=== PATIENT | male | born 1960 | race African-American/Black ===

== ENCOUNTER 2016-12-30 15:07 | Emergency (ER) | payer OTHER ==
[~2016-12-30] VITALS: Ht 185.4 cm; Wt 83.5 kg
[~2016-12-30 15:07] MED LIST: HYDR-2666 PO; HYDR-2762 PO; LISI40TA PO; LORA0.5T96 PO; MAGN64TA6 PO; MONT10TA6 PO; MULT-245 PO; POTA20TA82 PO; PRED20TA PO
[2016-12-30] MEDS ORDERED: IPRATRPIUM/ALBUTEROL 0.5/2.5MG 3 ML NEBU. ONE (15:26)
--- NOTE | 2016-12-30 15:28 | ED.ADGEN ---
Past History Past Medical History: Alcoholism, Hypertension, Hepatitis, Liver Disease, Other Past Surgical History: Other Alcohol Use: Heavy Drug Use: None Adult General Chief Complaint Chief Complaint abdominal pain HPI HPI Patient is a 56 year old male who presents with abdominal distention and abdominal pain. It's been slowly progressing over the last week. He also reports cough, denies known fevers, denies chest pain. Patient has known history of end-stage liver cirrhosis with abdominal ascites. He's required paracentesis in the past. He's been taking [place] for his chronic pain, no nausea or vomiting. The ascites does make him short of breath and he has orthopnea. He had edema in his lower extremities with states this is since improved. His last paracentesis was in November, PCP is Dr. 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 He does not continue to drink alcohol. Review of Systems Review of Systems Constitutional: Denies fever or chills [] Eyes: Denies change in visual acuity, redness, or eye pain [] HENT: Denies nasal congestion or sore throat [] Respiratory: Reports cough/sob Cardiovascular: denies chest pain GI: per hpi : Denies dysuria or hematuria [] Musculoskeletal: Denies back pain or joint pain [] Integument: Denies rash or skin lesions [] Neurologic: Denies headache, focal weakness or sensory changes [] Current Medications Current Medications Current Medications Medications (Trade) Dose Ordered Sig/[place] Start Time Stop Time Status Last Admin Dose Admin Albuterol/ Ipratropium (Duoneb) 3 ml STK-MED ONCE 12/30/16 15:26 12/30/16 15:27 DC Albuterol/ Ipratropium 3 ml 3 ml 1X ONCE 12/30/16 17:15 12/30/16 17:16 DC Dextrose 12.5 gm 1X ONCE 12/30/16 17:40 12/30/16 17:41 DC 12/30/16 17:31 12.5 GM Fentanyl Citrate (Fentanyl 2ml Vial) 50 mcg 1X ONCE 12/30/16 16:00 12/30/16 16:01 DC 12/30/16 16:00 50 MCG Levofloxacin/ Dextrose 100 ml @ 100 mls/hr 1X ONCE 12/30/16 16:30 12/30/16 17:29 DC 12/30/16 16:33 100 MLS/HR Levofloxacin/ Dextrose 1 each 1 each PRN DAILY PRN 12/30/16 16:00 Magnesium Sulfate (Magnesium Sulfate PREMIX 2GM) 50 ml @ 25 mls/hr 1X ONCE 12/30/16 17:30 12/30/16 19:29 12/30/16 17:25 25 MLS/HR Ondansetron HCl (Zofran) 4 mg 1X ONCE 12/30/16 18:00 12/30/16 18:01 12/30/16 17:40 4 MG Piperacillin Sod/ Tazobactam Sod (Zosyn Per Pharmacy) 1 each PRN DAILY PRN 12/30/16 16:00 Piperacillin Sod/ Tazobactam Sod 3.375 gm 3.375 gm STK-MED ONCE 12/30/16 16:41 12/30/16 16:42 DC Piperacillin Sod/ Tazobactam Sod 3.375 gm/Sodium Chloride 50 ml @ 100 mls/hr 1X ONCE 12/30/16 16:30 12/30/16 17:00 DC 12/30/16 17:08 100 MLS/HR Sodium Chloride (Iv Sodium Chloride 0.9% 1,000ml) 1,000 ml @ 100 mls/hr Q10H 12/30/16 15:30 Sodium Chloride (Iv Sodium Chloride 0.9% 50ml) 50 ml @ As Directed STK-MED ONCE 12/30/16 16:41 12/30/16 16:42 DC Vancomycin HCl (Vanco Per Pharmacy) 1 each PRN DAILY PRN 12/30/16 16:00 Vancomycin HCl 2 gm/Sodium Chloride 500 ml @ 250 mls/hr 1X ONCE 12/30/16 17:00 12/30/16 18:59 Cancel Vancomycin HCl/ Sodium Chloride (Iv Sodium Chloride 0.9% 500ml) 500 ml @ 250 mls/hr 1X ONCE 12/30/16 17:00 12/30/16 18:59 12/30/16 17:08 250 MLS/HR Allergies Allergies Allergies Coded Allergies Type Severity Reaction Last Updated Verified Sulfa (Sulfonamide Antibiotics) Allergy Intermediate 10/13/16 Yes folic acid Allergy Intermediate 10/13/16 Yes I S O L A T I O N *CONTACT* Allergy Unknown 10/15/16 Yes potassium Allergy Unknown 12/05/16 Yes Physical Exam Physical Exam Constitutional: well developed, mild distress, appears uncomfortable, doesn't want to lay back, thin extremities. HENT: Normocephalic, atraumatic, bilateral external ears normal, oropharynx moist, no oral exudates, nose normal. [] Eyes: PERRLA, EOMI, conjunctiva slightly icteric, no discharge. [] Neck: Normal range of motion, no tenderness, supple, no stridor. [] Cardiovascular:Heart rate tachycardia with regular rhythm, no murmur [] Lungs & Thorax: Bilateral breath sounds with moderate air, bibasilar crackles, no wheezing Abdomen: Bowel sounds normal, distended, generalized ttp without peritoneal signs, no guarding,small+ fluid wave Skin: Warm, dry, no erythema, no rash. [] Back: No tenderness, no CVA tenderness. [] Extremities: No tenderness, no cyanosis, no clubbing, ROM intact, trace bilateral lower extremity edema. [] Neurologic: Alert and oriented X 3, normal motor function, normal sensory function, no focal deficits noted. [] Psychologic: Affect normal, judgement normal, mood normal. [] Current Patient Data Vital Signs Vital Signs Date Time Temp Pulse Resp B/P Pulse Ox O2 Delivery O2 Flow Rate FiO2 12/30/16 17:06 95 12/30/16 16:34 138 109/61 Room Air 12/30/16 16:22 20 12/30/16 15:10 97.9 Lab Results Laboratory Tests Test 12/30/16 15:31 12/30/16 16:30 12/30/16 17:21 Lactic Acid Level 16.7mmol/L (0.4-2.0) *H White Blood Count 4.0x10^3/uL (4.0-11.0) Red Blood Count 2.64x10^6/uL (4.30-5.70) L Hemoglobin 8.9g/dL (13.0-17.5) L Hematocrit 27.3% (39.0-53.0) L Mean Corpuscular Volume 103fL (79-100) H Mean Corpuscular Hemoglobin 34pg (25-35) Mean Corpuscular Hemoglobin Concent 33g/dL (31-37) Red Cell Distribution Width 17.5% (11.5-14.5) H Platelet Count 38x10^3/uL (140-400) L Neutrophils (%) (Auto) 80% (31-73) H Lymphocytes (%) (Auto) 15% (24-48) L Monocytes (%) (Auto) 5% (0-9) Eosinophils (%) (Auto) 0% (0-3) Basophils (%) (Auto) 0% (0-3) Neutrophils # (Auto) 3.2x10^3uL (1.8-7.7) Lymphocytes # (Auto) 0.6x10^3/uL (1.0-4.8) L Monocytes # (Auto) 0.2x10^3/uL (0.0-1.1) Eosinophils # (Auto) 0.0x10^3/uL (0.0-0.7) Basophils # (Auto) 0.0x10^3/uL (0.0-0.2) Platelet Estimate Pending Prothrombin Time 28.8SEC (9.4-11.4) H Prothrombin Time INR 2.8 (0.9-1.1) H PTT 57SEC (23-33) H Sodium Level 144mmol/L (136-145) Potassium Level 3.7mmol/L (3.5-5.1) Chloride Level 108mmol/L (98-107) H Carbon Dioxide Level 11mmol/L (21-32) *L Anion Gap 25 (6-14) H Blood Urea Nitrogen 7mg/dL (8-26) L Creatinine 2.0mg/dL (0.7-1.3) H Estimated GFR (Cockcroft-Gault) 41.7 Glucose Level 60mg/dL (70-99) L Calcium Level 6.0mg/dL (8.5-10.1) *L Magnesium Level 0.4mg/dL (1.8-2.4) L Total Bilirubin 1.1mg/dL (0.2-1.0) H Direct Bilirubin 0.8mg/dL (0.0-0.2) H Aspartate Amino Transferase (AST) 109U/L (15-37) H Alanine Aminotransferase (ALT) 22U/L (16-63) Alkaline Phosphatase 151U/L (46-116) H LL-Vjg-U-Type Natriuretic Peptide 939pg/mL (0-124) H Total Protein 5.6g/dL (6.4-8.2) L Albumin 1.2g/dL (3.4-5.0) L Blood pH 7.20 (7.35-7.46) L Blood Gas PCO2 25mmHg (35-46) L Blood Gas PO2 61mmHg (80-100) L Blood Gas HCO3 10mmol/L (21-28) L Arterial Bld O2 Saturation (Calc) 81% (92-99) L FiO2 21% EKG EKG 126 bpm, sinus tach, normal axis, normal intervals, no ST elevation or depression, T-wave inversion in the lateral leads V4 through V6, interpreted by me [] Radiology/Procedures Radiology/Procedures CXR: Indication shortness of breath. A single view of the chest was obtained. Comparison is made to a study just under one month earlier. There is now an extensive infiltrate in the right lung compatible with pneumonia. The heart and pulmonary vessels are normal. The left lung is clear. Significant pleural fluid is not present and there is no pneumothorax. IMPRESSION: Moderately large infiltrate in the right lung, compatible with pneumonia, new relative to the study less than one month earlier [] Course & Med Decision Making Course & Med Decision Making Pertinent Labs and Imaging studies reviewed. (See chart for details) pt started on 100ml/hr NS, labs/ua ordered. CXR shows large pna, mycin, Zosyn and Levaquin ordered IV. Patient's initial blood pressure was not hypotensive but he became hypotensive. Concerned about fluid overloading the patient but 2 L of IV fluid was given and patient's blood pressure did respond with systolic blood pressure up to 100. Patient's heart rate continued to be tachycardic. He started I have some increased respiratory distress. Patient adamantly declined intubation a BiPAP. DuoNeb breathing treatment was given. Blood cultures are pending, patient tolerating BiPAP however then he became nauseous and received IV Zofran. He was given 2 g mag sulfate for his hypomagnesemia. I contacted Dr. Gomez agrees the patient needs higher level of care. Patient adamantly refused to go to [facility]. He requests med. I contacted their facility, there was delay in their transfer line returning the call but they did accept the patient to ICU under Dr. Carnes. Patient will be transferred via [facility] ambulance on BiPAP. Patient's blood sugar was 60 and he received half amp of D50. VBG performed shows mixed respiratory/metabolic acidosis. Total critical care time was 45 minutes Final Impression Final Impression Severe Sepsis with septic shock HCAP pneumonia lactic acidosis Renal insufficency Liver cirrhosis Hypocalcemia Alcoholic thrombocytopenia Chronic anemia Problems: Dragon Disclaimer Dragon Disclaimer This electronic medical record was generated, in whole or in part, using a voice recognition dictation system. LOYD LOPES MD Dec 30, 2016 15:28
[2016-12-30] MEDS ORDERED: IV NORMAL SALINE 1,000ML 1,000 ML IV SCH (15:30)
--- NOTE | 2016-12-30 15:48 | RAD ---
Indication shortness of breath. A single view of the chest was obtained. Comparison is made to a study just under one month earlier. There is now an extensive infiltrate in the right lung compatible with pneumonia. The heart and pulmonary vessels are normal. The left lung is clear. Significant pleural fluid is not present and there is no pneumothorax. IMPRESSION: Moderately large infiltrate in the right lung, compatible with pneumonia, new relative to the study less than one month earlier
[2016-12-30] MEDS ORDERED: LEVOFLOXACIN PER PHARMACY MC PRN (16:00)
[2016-12-30] MEDS ORDERED: PIP/TAZO PER PHARMACY MC PRN (16:00)
[2016-12-30] MEDS ORDERED: FENTANYL PF 100 MCG/2 ML VIAL. IV ONE (16:00)
[2016-12-30] MEDS ORDERED: IV NORMAL SALINE 1,000ML 1,000 ML IV ONE ×2 (16:00→16:15)
[2016-12-30] MEDS ORDERED: VANCOMYCIN PER PHARMACY MC PRN (16:00)
--- NOTE | 2016-12-30 16:28 | EKG ---
[address] [address] Test Date: 2016-12-30 Test Time: 15:25:27 Pat Name: IAIN SAEED Department: Room: Gender: M [employer]: TONE : 1960 Requested By: LOYD LOPES Order Number: [id number] Reading MD: Measurements Intervals [place] Rate: 126 P: -43 ME: 126 QRS: 19 QRSD: 74 T: 59 QT: 316 QTc: 465 Interpretive Statements SINUS TACHYCARDIA LOW LIMB LEAD VOLTAGE T ABNORMALITY IN ANTEROLATERAL LEADS ABNORMAL ECG RI6.01 Unconfirmed report No previous ECG available for comparison
[2016-12-30] MEDS ORDERED: PIPERACILLIN/TAZOBACTAM 3.375 GM in IV NORMAL SALINE 50ML 50 ML IV ONE (16:30)
[2016-12-30] MEDS ORDERED: IV NORMAL SALINE 50ML 50 ML ONE (16:41)
[2016-12-30] MEDS ORDERED: PIPERACILLIN/TAZOBACTAM 3.375 GM VIAL IV ONE (16:41)
[2016-12-30 16:44] LABS: BASO % 0 % (0-3); EOS % 0 % (0-3); HEMATOCRIT 27.3 % (39.0-53.0); HEMOGLOBIN 8.9 g/dL (13.0-17.5); LYMPH # 0.6 x10^3/uL (1.0-4.8); LYMPH % 15 % (24-48); MEAN CORPUSCULAR HEMOGLOBIN 34 pg (25-35); MEAN CORPUSCULAR HGB CONC 33 g/dL (31-37); MEAN CORPUSCULAR VOLUME 103 fL (79-100); MONO # 0.2 x10^3/uL (0.0-1.1); MONO % 5 % (0-9); NEUT # 3.2 x10^3uL (1.8-7.7); NEUT % 80 % (31-73); PLATELET COUNT 38 x10^3/uL (140-400); RED BLOOD COUNT 2.64 x10^6/uL (4.30-5.70); RED CELL DISTRIBUTION WIDTH 17.5 % (11.5-14.5)
[2016-12-30 17:00] LABS: ALBUMIN 1.2 g/dL (3.4-5.0); DIRECT BILIRUBIN 0.8 mg/dL (0.0-0.2); GFR 41.7; POTASSIUM 3.7 mmol/L (3.5-5.1); TOTAL BILIRUBIN 1.1 mg/dL (0.2-1.0); TOTAL PROTEIN 5.6 g/dL (6.4-8.2)
[2016-12-30] MEDS ORDERED: VANCOMYCIN 2 GM in IV NORMAL SALINE 500ML 500 ML IV ONE ×4 (17:00)
[2016-12-30 17:14] LABS: MAGNESIUM 0.4 mg/dL (1.8-2.4)
[2016-12-30] MEDS ORDERED: IPRATRPIUM/ALBUTEROL 0.5/2.5MG 3 ML NEBU. NEB ONE ×2 (17:15→18:45)
[2016-12-30 17:29] LABS: BGAS PH 7.2 (7.35-7.46)
[2016-12-30] MEDS ORDERED: MAGNESIUM SULFATE 2GM 50 ML IV ONE (17:30)
[2016-12-30] MEDS ORDERED: DEXTROSE 50% 25 GM / 50ML DISP.SYRIN. IV ONE (17:40)
[2016-12-30] MEDS ORDERED: ONDANSETRON PF 4 MG/2 ML VIAL. IV ONE (18:00)
[2016-12-30 18:29] LABS: % BANDS 31 % (0-9); % LYMPHS 8 % (24-48); % MONOS 1 % (0-10); % MYELOS 4 % (0-0); % SEGS 56 % (35-66)
[2016-12-30 18:32] LABS: PLT ESTIMATE DECREASED (ADEQUATE)
[2016-12-30 18:34] LABS: ANISOCYTOSIS SLIGHT
[2016-12-30] MEDS ORDERED: IV DEXTROSE 5% 250 ML IV ONE (19:03)
[2016-12-30] MEDS ORDERED: NOREPINEPHRINE BITARTRATE 4 MG/4 ML VIAL. IV ONE (19:03)
[2016-12-30 19:05] VITALS: BP 88/59
[2016-12-30] MEDS ORDERED: NOREPINEPHRINE BITARTRATE 8 MG in IV NORMAL SALINE 250ML 250 ML IV PRN (19:15)
== END 2016-12-30 19:22 | disposition short-term general hospital (02) ==
LOC: ER 15:07
DX: A41.9 Sepsis, unspecified organism (principal); R65.21 Severe sepsis with septic shock; N17.9 Acute kidney failure, unspecified; D64.9 Anemia, unspecified; E83.51 Hypocalcemia; D69.59 Other secondary thrombocytopenia; G89.29 Other chronic pain; J18.9 Pneumonia, unspecified organism; K74.60 Unspecified cirrhosis of liver; R18.8 Other ascites; E83.42 Hypomagnesemia; I10 Essential (primary) hypertension; F10.20 Alcohol dependence, uncomplicated; R00.0 Tachycardia, unspecified; E87.2 Acidosis; Z88.2 Allergy status to sulfonamides; Z88.8 Allergy status to other drugs, medicaments and biological substances; Z91.041 Radiographic dye allergy status
CPT/HCPCS: 36415; 36600; 71010; 80048; 80076; 82803; 83605; 83735; 83880; 85007; 85027; 85610; 85730; 87040; 87205; 92950; 93005; 94640; 94660; 96361; 96365; 96366; 96368; 96375; 99291; J1956; J2405; J2543; J3010; J3370; J3475; J7040; J7050; J7620; J7030